=== PATIENT | female | born 1990 | race Caucasian/White ===

== ENCOUNTER 2018-10-30 08:44 | Inpatient (IN) | payer MEDICARE, OTHER ==
[2018-10-30 08:49] VITALS: BMI 21.4
[2018-10-30] MEDS ORDERED: methylPREDNISolone NA SUCC 125 MG/2 ML VIAL IVPUSH ONE (08:59)
--- NOTE | 2018-10-30 08:59 | PDOC ---
History of Present Illness - General Chief Complaint: Shortness of Breath Stated Complaint: SOB Time Seen by Provider: 10/30/18 08:59 History Source: Patient Exam Limitations: No Limitations - History of Present Illness Initial Comments: 10/30/18 09:32 Pt presents to the ED complaining of wheezing and shortness of breath consistent with, but worse than, her typical asthma attack. History of asthma without intubations or recent hospital admissions. States that she "felt like she was gettting sick yesterday", but that she felt well until she became acutely short of breath today. Tried her inhaler without relief. Patient is a smoker. 10/30/18 09:37 Past History - Past Medical History Allergies/Adverse Reactions: Allergies Allergy/AdvReac Type Severity Reaction Status Date / Time No Known Allergies Allergy Verified 01/20/16 15:07 Home Medications: Ambulatory Orders Amox-Tr/K Cl [Augmentin 875Mg Tablet] 1 tab PO BID #20 tablet 01/20/16 Asthma: Yes - Suicide/Smoking/Psychosocial Hx Smoking History: Never smoked Have you smoked in the past 12 months: No Number of Cigarettes Smoked Daily: 10 Information on smoking cessation initiated: No 'Breaking Loose' booklet given: 05/07/13 Hx Alcohol Use: No Drug/Substance Use Hx: No Substance Use Type: None Review of Systems - Review of Systems Able to Perform ROS?: Yes Is the patient limited [place] Citizen proficient: No Constitutional: No: Chills, Diaphoresis, Fever, Loss of Appetite, Malaise, Night Sweats, Weakness, Weight Stable, Unintentional Wgt. Loss, Unexplained wgt Loss, Other HEENTM: No: Eye Pain, Blurred Vision, Tearing, Recent change in vision, Double Vision, Cataracts, Ear Pain, Ocular Prothesis, Ear Discharge, Nose Pain, Nose Congestion, Tinnitus, Nose Bleeding, Hearing Loss, Throat Pain, Throat Swelling , Mouth Pain, Dental Problems, Difficulty Swallowing, Mouth Swelling, Other Respiratory: Yes: Shortness of Breath, SOB with Exertion, SOB at Rest, Wheezing Cardiac (ROS): Yes: Chest Tightness ABD/GI: No: Abdominal Distended, Abd. Pain w/ defecation, Blood Streaked Bowels , Constipated, Diarrhea, Difficulty Swallowing, Nausea, Poor Appetite, Poor Fluid Intake, Rectal Bleeding, Vomiting, Indigestion, Abdominal cramping, Tarry Stools, Other Musculoskeletal: No: Back Pain, Gout, Joint Pain, Joint Swelling, Muscle Pain, Muscle Weakness, Neck Pain, Joint Stiffness, Other All Other Systems: Reviewed and Negative *Physical Exam - Vital Signs Last Vital Signs Temp Pulse Resp BP Pulse Ox 82 20 115/68 97 10/30/18 08:45 10/30/18 08:45 10/30/18 08:45 10/30/18 08:45 - Physical Exam Comments: 10/30/18 09:39 Gen: alert, mild respiratory distress HEENT: normocephalic, atraumatic CV: rrr, slightly tachycardic Lungs: + diffuse wheezing b/l. good air entry. Speaking in 4-5 word sentences. + accessory muscle use Abdomen: soft, non tender, non distended Ext: no edema or tenderness Neuro: alert and oriented x 3 ED Treatment Course - LABORATORY CBC & Chemistry Diagram: 10/30/18 10:52 10/30/18 10:52 Medical Decision Making - Medical Decision Making 10/30/18 11:25 pt presents to the ED complaining of wheezing and shortness of breath consistent with, but worse than prior asthma exacerbations. Treated with mag, solumedrol and multiple nebs with some improvement. However, patient is still unable to ambulate without becoming severely short of breath. Will admit to medicine for observation and continued asthma treatments. *DC/Admit/Observation/Transfer Diagnosis at time of Disposition: Asthma Qualifiers: Asthma severity: moderate Asthma persistence: persistent Asthma complication type: with acute exacerbation Qualified Code(s): J45.41 - Moderate persistent asthma with (acute) exacerbation - Discharge Dispostion Condition at time of disposition: Good Decision to Admit order: Yes - Referrals - Patient Instructions - Post Discharge Activity
[2018-10-30] MEDS: ALBUTEROL SO4 2.5/IPRATROPIUM 0.5 INH SOL 3 ML VIAL.NEB. NEB SCH ×5 (09:09→19:09)
[2018-10-30] MEDS ORDERED: ALBUTEROL SO4 2.5/IPRATROPIUM 0.5 INH SOL 3 ML VIAL.NEB. NEB ONE (09:10)
[2018-10-30] MEDS ORDERED: methylPREDNISolone NA SUCC 125 MG/2 ML VIAL ONE (09:10)
[2018-10-30] MEDS ORDERED: MAGNESIUM SULF 50% (8.12 MEQ/2 ML-1 GM VIAL) IVPB ONE (09:32)
[2018-10-30] MEDS ORDERED: MAGNESIUM 1GM/D5W - 2 GM/200 ML IVPB IVPB ONE (09:32)
[2018-10-30] MEDS ORDERED: ALBUTEROL SO4 0.083% IH SOL 2.5 MG/3 ML VIAL.NEB. NEB ONE ×3 (09:59→13:08)
[2018-10-30] MEDS ORDERED: ALBUTEROL SO4 0.5 % INH SOLN 2.5 MG/0.5 ML VIAL.NEB. NEB ONE ×3 (10:21→13:04)
[2018-10-30 11:14] LABS: BASO % 0.2 % (0-2.0); EOS % 1.3 % (0-4.5); HEMATOCRIT 41.4 % (32.4-45.2); HEMOGLOBIN 14.1 GM/dl (10.7-15.3); LYMPH % 10.9 % (8-40); MCH 32.3 pg (25.7-33.7); MCHC 34.1 g/dl (32.0-36.0); MEAN CELL VOLUME 94.8 fl (80-96); MEAN PLT VOLUME 10.1 fl (7.5-11.1); MONO % 4.6 % (3.8-10.2); PLATELET COUNT 207 K/MM3 (134-434); RBC 4.37 M/mm3 (3.60-5.2); RDW 12.3 % (11.6-15.6); WHITE BLOOD COUNT 10.7 K/mm3 (4.0-10.8)
[2018-10-30 11:21] LABS: ALBUMIN 4.5 g/dl (3.4-5.0); BILIRUBIN,TOTAL 0.6 mg/dl (0.2-1); CALCIUM 8.8 mg/dl (8.5-10); CREATININE 0.7 mg/dl (0.55-1.3); POTASSIUM 3.2 mmol/L (3.5-5.1); TOT PROT 7.4 g/dl (6.4-8.2)
--- NOTE | 2018-10-30 13:19 | HP ---
CHIEF COMPLAINT: Wheezing, SOB PCP: None - has not had PCP >9 years; goes to EDs for care HISTORY OF PRESENT ILLNESS: 28 year-old female with a PMH significant for asthma. She presented to the ED today for wheezing and shortness of breath. Patient has no history of overnight hospitalizations, no previous intubations. This is her fourth visit to an ED this year and she has been on steroids twice this year. Patient is allergic to cats but has cats at home. She did not clean their hair for 2 days and thinks this is what triggered this asthma attack. Yesterday she had some clear nasal discharge and a slight sore throat. She denies fever, sweats, chills, nausea, cough. ER course was notable for: (1) RR 22, SpO2 91% room air Recent Travel: No PAST MEDICAL HISTORY: Asthma PAST SURGICAL HISTORY: None reported Social History: unemployed; lives with mother and brothers Smoking: current every day cigarettes; denies vaping Alcohol: occasional Drugs: occasional marijuana Family History: Mother 46 with asthma; father 48 a&w; 4 brothers and 4 half- brothers 2 of whom of asthma Allergies No Known Allergies Allergy (Verified 01/20/16 15:07) HOME MEDICATIONS: Home Medications Medication Instructions Recorded Amox-Tr/K Cl [Augmentin 875Mg 1 tab PO BID #20 tablet 01/20/16 Tablet] REVIEW OF SYSTEMS CONSTITUTIONAL: Absent: fever, chills, diaphoresis, generalized weakness, malaise, loss of appetite, weight change HEENT: Absent: rhinorrhea, nasal congestion, throat pain, throat swelling, difficulty swallowing, mouth swelling, ear pain, eye pain, visual changes CARDIOVASCULAR: Absent: chest pain, syncope, palpitations, irregular heart rate, lightheadedness , peripheral edema RESPIRATORY: +SOB, wheezing, CED[place]O Absent: cough, orthopnea, stridor, hemoptysis GASTROINTESTINAL: Absent: abdominal pain, abdominal distension, nausea, vomiting, diarrhea, constipation, melena, hematochezia GENITOURINARY: Absent: dysuria, frequency, urgency, hesitancy, hematuria, flank pain, genital pain MUSCULOSKELETAL: Absent: myalgia, arthralgia, joint swelling, back pain, neck pain SKIN: Absent: rash, itching, pallor HEMATOLOGIC/IMMUNOLOGIC: Absent: easy bleeding, easy bruising, lymphadenopathy, frequent infections ENDOCRINE: Absent: unexplained weight gain, unexplained weight loss, heat intolerance, cold intolerance NEUROLOGIC: Absent: headache, focal weakness or paresthesias, dizziness, unsteady gait, seizure, mental status changes, bladder or bowel incontinence PSYCHIATRIC: Absent: anxiety, depression, suicidal or homicidal ideation, hallucinations. PHYSICAL EXAMINATION Vital Signs - 24 hr 10/30/18 10/30/18 10/30/18 08:45 10:23 10:53 Pulse Rate 82 Pulse Rate [ 121 H 75 Right] Respiratory 20 22 H 21 H Rate Blood Pressure 115/68 Blood Pressure 125/73 99/62 [Left Arm] O2 Sat by Pulse 97 96 96 Oximetry (%) 10/30/18 10/30/18 10:56 12:04 Pulse Rate Pulse Rate [ 79 Right] Respiratory 20 Rate Blood Pressure Blood Pressure 107/80 [Left Arm] O2 Sat by Pulse 96 93 L Oximetry (%) GENERAL: Awake, alert, and fully oriented, in no acute distress. HEAD: Normal with no signs of trauma. LUNGS: Inspiratory and expiratory wheezing; able to speak in complete sentences ; no accessory muscle use. HEART: Regular rate and rhythm, S1 and S2 ABDOMEN: Soft, nontender, not distended UPPER EXTREMITIES: 2+ pulses, warm, well-perfused. No cyanosis. No clubbing. No peripheral edema. LOWER EXTREMITIES: 2+ pulses, warm, well-perfused. No calf tenderness. No peripheral edema. NEUROLOGICAL: Cranial nerves II-XII intact. Normal speech. Laboratory Results - last 24 hr 10/30/18 10/30/18 10:52 10:52 WBC 10.7 RBC 4.37 Hgb 14.1 Hct 41.4 MCV 94.8 MCH 32.3 MCHC 34.1 RDW 12.3 Plt Count 207 MPV 10.1 Absolute Neuts (auto) 8.9 Neutrophils % 83.0 H Lymphocytes % 10.9 Monocytes % 4.6 Eosinophils % 1.3 Basophils % 0.2 Sodium 139 Potassium 3.2 L Chloride 109 H Carbon Dioxide 21 Anion Gap 9 BUN 9.0 Creatinine 0.7 Est GFR (CKD-EPI)AfAm 137.62 Est GFR (CKD-EPI)NonAf 118.74 Random Glucose 107 H Calcium 8.8 Total Bilirubin 0.6 AST 18 ALT 15 Alkaline Phosphatase 45 Total Protein 7.4 Albumin 4.5 ASSESSMENT/PLAN 28 year-old female with a PMH significant for asthma admitted for asthma exacerbation. Hypoxic respiratory failure secondary to asthma exacerbation --sat 91% in ED on room air --titrate O2 >95% --duonebs QID, albuterol nebs PRN --solumedrol 40mg q6h --pre post in am --pulmonary consult Hypokalemia --replete FEN Fluids: PO intake adequate Electrolytes: replete as indicated Nutrition: regular diet DVT prophylaxis: low risk, oob, ambulation Dispo: continues to require inpatient care. Full code. Visit type - Emergency Visit Emergency Visit: Yes ED Registration Date: 10/30/18 Care time: The patient presented to the Emergency Department on the above date and was hospitalized for further evaluation of their emergent condition. - New Patient This patient is new to me today: Yes Date on this admission: 10/30/18 - Critical Care Critical Care patient: No
[2018-10-30] MEDS ORDERED: ALBUTEROL SO4 0.083% IH SOL 2.5 MG/3 ML VIAL.NEB. NEB PRN ×2 (13:53→23:42)
[2018-10-30] MEDS: methylPREDNISolone NA SUCC 40 MG/1 ML VIAL IVPUSH SCH ×2 (16:08→20:54)
[2018-10-30] MEDS ORDERED: POTASSIUM CHLORIDE TABS 20 MEQ TABLET.ER (FP) PO SCH (16:45)
[2018-10-30 17:04] LABS: MAGNESIUM 1.6 mg/dL (1.8-2.4)
[2018-10-30] MEDS ORDERED: PNEUMOC 13-VAL CONJ-DIP CRM/PF 0.5 ML DISP.SYRIN IM ONE (17:05)
[2018-10-30] MEDS ORDERED: PNEUMOCOCCAL 23 VACCINE 0.5 ML VIAL IM ONE (17:15)
[2018-10-30] MEDS: POTASSIUM CHLORIDE ORAL LIQUID 20 MEQ/15 ML PO SCH (19:08)
--- NOTE | 2018-10-30 21:25 | ED.PROV ---
Physicial Exam I saw and examined the patient. Call to the floor to examine this patient who was admitted earlier for exam asthma exacerbation. Patient over the last couple of hours has begun to have increased difficulty breathing with increased work of breathing and at the time of my evaluation patient was receiving a DuoNeb. Patient had received 1 DuoNeb prior to that in the last 2 hours and had just received some Solu-Medrol. Had diffuse wheezing in all lung graves with expiratory phase greater than inspiratory phase. Patient's O2 sat during the DuoNeb was 93-94%. Patient otherwise was using some accessory muscles with respiration. Patient was not diaphoretic or in any acute distress. Recommended the patient be transferred over to [facility] preferably ICU. Discussed evaluation and exam with Sandhya Rosas the nurse practitioner. - Vital Signs Last Vital Signs Temp Pulse Resp BP Pulse Ox 98.7 F 94 H 17 107/64 95 10/30/18 18:00 10/30/18 18:00 10/30/18 18:00 10/30/18 18:00 10/30/18 18:00
--- NOTE | 2018-10-30 21:30 | RAPID ---
Physical Examination Vital Signs: Vital Signs Temperature 98.7 F 10/30/18 18:00 Pulse Rate 94 H 10/30/18 18:00 Respiratory Rate 17 10/30/18 18:00 Blood Pressure 107/64 10/30/18 18:00 O2 Sat by Pulse Oximetry (%) 95 10/30/18 18:00 Labs: CBC, BMP 10/30/18 10:52 10/30/18 10:52 Rapid Response - Rapid Response Assessment: Summoned to patient's room by nursing staff. Patient seen and examined. RR 40 SpO2 95% on 15L (nebulizer) HR 133 General: found patient sitting on edge of bed in tripod position; agitated CV: S1, S2, tachycardic Lungs: diffuse wheezing + accessory muscle use, unable to speak in complete sentences SKIN: dry, warm Hypoxic respiratory failure Severe asthma exacerbation, worsening --Mg given in ED --second dose IV steroids given --continuous nebs --ACLS transfer to ICU --discussed with Dr. Vera Duffy who came to bedside, see note FULL CODE
--- NOTE | 2018-10-30 23:26 | CONSULT ---
Consultation: CONSULT REQUEST: [facility] patient with acute asthma exacerbation HISTORY OF PRESENT ILLNESS: The patient is a 28 year old female with a PMH of Asthma who was brought to our facility from [place] for treatment of her asthma exacerbation. Patient states she started feeling short of breath yesterday around 4-5 p.m. and used her Albuterol inhaler and Pro Air pumps with little relief. When her symptoms persisted she went to the [facility] ER where she was given multiple treatments and admitted to the hospital. States her symptoms improved but she was still having difficulty breathing. Normally, has 5 attacks weekly sometimes during the day, sometimes at night. Patient has been buying her inhalers off the street since she does not have a primary care doctor. States she is going to establish prima care with Dr. Sparks who treats her family (her younger brother also has asthma). Daily smoker (7-8 cigarettes since age 22) and states her asthma triggers includes her multiple cats. Fiance @ bedside. REVIEW OF SYSTEMS: Positive: shortness of breath, wheezing, cough CONSTITUTIONAL: Absent: fever, chills, diaphoresis, generalized weakness, malaise, loss of appetite, weight change HEENT: Absent: rhinorrhea, nasal congestion, throat pain, throat swelling, difficulty swallowing, mouth swelling, ear pain, eye pain, visual changes CARDIOVASCULAR: Absent: chest pain, syncope, palpitations, irregular heart rate, lightheadedness , peripheral edema RESPIRATORY: Absent: dyspnea with exertion, orthopnea, hemoptysis GASTROINTESTINAL: Absent: abdominal pain, abdominal distension, nausea, vomiting, diarrhea, constipation, melena, hematochezia GENITOURINARY: Absent: dysuria, frequency, urgency, hesitancy, hematuria, flank pain, genital pain MUSCULOSKELETAL: Absent: myalgia, arthralgia, joint swelling, back pain, neck pain SKIN: Absent: rash, itching, pallor HEMATOLOGIC/IMMUNOLOGIC: Absent: easy bleeding, easy bruising, lymphadenopathy, frequent infections ENDOCRINE: Absent: unexplained weight gain, unexplained weight loss, heat intolerance, cold intolerance NEUROLOGIC: Absent: headache, focal weakness or paresthesias, dizziness, unsteady gait, seizure, mental status changes, bladder or bowel incontinence PSYCHIATRIC: Absent: anxiety, depression, suicidal or homicidal ideation, hallucinations. PHYSICAL EXAMINATION General: awake, alert, receiving Duo Neb treatment Respiratory: Scattered diffuse wheezing w/good air entry B/L, speaking in full sentences, no accessory muscle use, no tripoding CV: S1, S2, RRR, Tachycardic Abdomen: soft, non-tender Extremity: 2+ DP pulses B/L, no edema Neuro: A&O x3, CN II-XI intact Vital Signs - 24 hr 10/30/18 10/30/18 10/30/18 08:45 10:23 10:53 Temperature 98.3 F Pulse Rate 82 Pulse Rate [ 121 H 75 Right] Respiratory 20 22 H 21 H Rate Blood Pressure 115/68 Blood Pressure 125/73 99/62 [Left Arm] O2 Sat by Pulse 97 96 96 Oximetry (%) 10/30/18 10/30/18 10/30/18 10:56 12:04 13:53 Temperature Pulse Rate Pulse Rate [ 79 Right] Respiratory 20 Rate Blood Pressure Blood Pressure 107/80 [Left Arm] O2 Sat by Pulse 96 93 L 91 L Oximetry (%) 10/30/18 10/30/18 10/30/18 14:00 16:42 16:50 Temperature 98.3 F 98.4 F Pulse Rate 84 Pulse Rate [ 87 Right] Respiratory 20 22 H Rate Blood Pressure 112/62 Blood Pressure 111/61 [Left Arm] O2 Sat by Pulse 93 L 96 Oximetry (%) 10/30/18 18:00 Temperature 98.7 F Pulse Rate 94 H Pulse Rate [ Right] Respiratory 17 Rate Blood Pressure 107/64 Blood Pressure [Left Arm] O2 Sat by Pulse 95 Oximetry (%) Laboratory Results - last 24 hr 10/30/18 10/30/18 10:52 10:52 WBC 10.7 RBC 4.37 Hgb 14.1 Hct 41.4 MCV 94.8 MCH 32.3 MCHC 34.1 RDW 12.3 Plt Count 207 MPV 10.1 Absolute Neuts (auto) 8.9 Neutrophils % 83.0 H Lymphocytes % 10.9 Monocytes % 4.6 Eosinophils % 1.3 Basophils % 0.2 Sodium 139 Potassium 3.2 L Chloride 109 H Carbon Dioxide 21 Anion Gap 9 BUN 9.0 Creatinine 0.7 Est GFR (CKD-EPI)AfAm 137.62 Est GFR (CKD-EPI)NonAf 118.74 Random Glucose 107 H Calcium 8.8 Magnesium 1.6 L Total Bilirubin 0.6 AST 18 ALT 15 Alkaline Phosphatase 45 Total Protein 7.4 Albumin 4.5 Active Medications Generic Name Dose Route Start Last Admin Trade Name Freq PRN Reason Stop Dose Admin Albuterol Sulfate 1 amp 10/30/18 13:53 10/30/18 20:55 Ventolin 0.083% Nebulizer Soln - NEB 1 amp Q4H PRN Administration SHORT OF BREATH/WHEEZING Albuterol/Ipratropium 1 amp 10/30/18 16:00 10/30/18 19:09 Duoneb - NEB 1 amp RQID JESSIKA Administration Methylprednisolone Sodium Succinate 40 mg 10/30/18 15:00 10/30/18 20:54 Solu-Medrol - IVPUSH 40 mg Q6H-IV JESSIKA Administration Potassium Chloride 40 meq 10/30/18 18:45 10/30/18 19:08 Potassium Chloride Oral Liquid PO 10/31/18 00:46 40 meq Q6H JESSIKA Administration ASSESSMENT/PLAN: 28 y/o female with acute asthma exacerbation. Reported to be tripoding with accessory muscle use at [place]. Upon presentation to our ED patient protecting airway, speaking full sentences, HDS. PULMONARY # Exacerbation of Severe Persistent Asthma - s/p Mg, Solumedrol @ [place] - Not in RD @ presentation to our ICU - Continue Duo Nebs Q2H PRN + Beta Agonist Q2H PRN - Close monitoring for respiratory compromise F/E/N Regular Diet DVT Prophylaxis: Heparin SQ FULL CODE DISPOSITION: Pending patient's continued clinical improvement likely discharge home tomorrow. Visit type - Emergency Visit Emergency Visit: Yes ED Registration Date: 10/30/18 Care time: The patient presented to the Emergency Department on the above date and was hospitalized for further evaluation of their emergent condition. - New Patient This patient is new to me today: Yes Date on this admission: 10/31/18 - Critical Care Critical Care patient: No ATTENDING PHYSICIAN STATEMENT I saw and evaluated the patient. I reviewed the resident's note and discussed the case with the resident. I agree with the resident's findings and plan as documented. SUBJECTIVE: OBJECTIVE: ASSESSMENT AND PLAN:
[2018-10-30] MEDS ORDERED: ALBUTEROL SO4 2.5/IPRATROPIUM 0.5 INH SOL 3 ML VIAL.NEB. NEB PRN (23:35)
[2018-10-31] MEDS: POTASSIUM CHLORIDE ORAL LIQUID 20 MEQ/15 ML PO SCH (02:15)
[2018-10-31] MEDS: methylPREDNISolone NA SUCC 40 MG/1 ML VIAL IVPUSH SCH ×4 (02:16→21:18)
[2018-10-31 06:51] LABS: HEMOGLOBIN 13.6 GM/dL (10.7-15.3); LYMPH % 4.7 % (8-40)
[2018-10-31 06:53] LABS: BASO % 0.1 % (0-2.0); MCH 32.3 pg (25.7-33.7); MCHC 33.9 g/dl (32.0-36.0); MEAN CELL VOLUME 95.2 fl (80-96); MEAN PLT VOLUME 9.4 fl (7.5-11.1); MONO % 2.3 % (3.8-10.2); NEUT % 92.9 % (42.8-82.8); PLATELET COUNT 206 K/MM3 (134-434); RDW 13.5 % (11.6-15.6); WHITE BLOOD COUNT 11.2 K/mm3 (4.0-10.0)
--- NOTE | 2018-10-31 07:01 | PN ---
Physical Exam: SUBJECTIVE: Patient seen and examined at bedside this morning. She endorses significant improvement of her shortness of breath today. OBJECTIVE: Vital Signs Period Temp Pulse Resp BP Sys/Fraser Pulse Ox Last 24 Hr 98 F-98.7 F 74-121 17-23 99-125/61-80 91-97 GENERAL: The patient is awake, alert, and fully oriented, in no acute distress. Speaking in full sentences. HEAD: Normocephalic, atraumatic EYES: PERRL, extraocular movements intact, sclera anicteric, conjunctiva clear. No ptosis. ENT: Oropharynx clear without exudates, moist mucous membranes. NECK: Supple without lymphadenopathy. Negative stridor LUNGS: Good inspiratory effort, expiratory wheezing bilaterally, worse on right side. Not using accessory muscles of respiration. HEART: Regular rate and rhythm, S1, S2 without murmur, rub or gallop. ABDOMEN: Soft, nontender, nondistended, normoactive bowel sounds, no guarding, no rebound, no hepatosplenomegaly, no masses. EXTREMITIES: 2+ radial, dorsalis pedis pulses bilaterally, warm, well-perfused. No edema. NEUROLOGICAL: Cranial nerves II through XII grossly intact. Normal speech. PSYCH: Normal mood, normal affect. SKIN: Warm, dry. Laboratory Results - last 24 hr 10/30/18 10/30/18 10/31/18 10:52 10:52 05:30 WBC 10.7 11.2 H RBC 4.37 4.20 Hgb 14.1 13.6 Hct 41.4 40.0 MCV 94.8 95.2 MCH 32.3 32.3 MCHC 34.1 33.9 RDW 12.3 13.5 Plt Count 207 206 MPV 10.1 9.4 Absolute Neuts (auto) 8.9 10.4 H Neutrophils % 83.0 H 92.9 H Lymphocytes % 10.9 4.7 L Monocytes % 4.6 2.3 L Eosinophils % 1.3 0.0 Basophils % 0.2 0.1 Nucleated RBC % 0 Sodium 139 Potassium 3.2 L Chloride 109 H Carbon Dioxide 21 Anion Gap 9 BUN 9.0 Creatinine 0.7 Est GFR (CKD-EPI)AfAm 137.62 Est GFR (CKD-EPI)NonAf 118.74 Random Glucose 107 H Calcium 8.8 Magnesium 1.6 L Total Bilirubin 0.6 AST 18 ALT 15 Alkaline Phosphatase 45 Total Protein 7.4 Albumin 4.5 Active Medications Generic Name Dose Route Start Last Admin Trade Name Freq PRN Reason Stop Dose Admin Albuterol Sulfate 1 amp 10/30/18 23:42 10/31/18 06:33 Ventolin 0.083% Nebulizer Soln - NEB 1 amp Q2H PRN Administration SHORT OF BREATH/WHEEZING Albuterol/Ipratropium 1 amp 10/30/18 16:00 10/30/18 19:09 Duoneb - NEB 1 amp RQID JESSIKA Administration Albuterol/Ipratropium 1 amp 10/30/18 23:35 10/31/18 02:35 Duoneb - NEB 1 amp Q2H PRN Administration SHORTNESS OF BREATH Methylprednisolone Sodium Succinate 40 mg 10/30/18 15:00 10/31/18 02:16 Solu-Medrol - IVPUSH 40 mg Q6H-IV JESSIKA Administration ASSESSMENT/PLAN: Patient is 28 year old female with history of asthma (chronic persistent) admitted for acute respiratory failure secondary to asthma exacerbation. Neurologic -Patient is awake, alert, oriented, in no acute distress -Monitor for signs of mental status changes. Cardiac -EKG reveals incomplete right bundle branch block. Negative ischemic changes. -No prior for comparison. Repeat ECG, will need to obtain prior records. -Cardiac monitoring while in ICU Pulmonary Asthma (exacerbation) -Continue Albuterol- ipratropium nebulizer Q4H -Albuterol inhaler Q4H PRN -Singulair 10mg PO HS -Advair 1 puff BID -Methyl prednisone 40mg IV Q8 hours -Maintain oxygen saturation greater than 90% -Counselled regarding importance of smoking cessation. Gastrointestinal -Patient tolerating regular diet without abdominal pain, nausea, vomiting -Prophylaxis not indicated FEN -No IV fluids indicated -Follow CMP, replete as necessary -Regular diet Prophylaxis -Early ambulation Disposition -Patient stable for transfer to medical- surgical floor. Visit type - Emergency Visit Emergency Visit: Yes ED Registration Date: 10/30/18 Care time: The patient presented to the Emergency Department on the above date and was hospitalized for further evaluation of their emergent condition. - New Patient This patient is new to me today: Yes Date on this admission: 10/31/18 - Critical Care Critical Care patient: Yes Total Critical Care Time (in minutes): 35 Critical Care Statement: The care of this patient involved high complexity decision making to prevent further life threatening deterioration of the patient 's condition and/or to evaluate & treat vital organ system(s) failure or risk of failure. - Discharge Referral Referred to [facility] No ATTENDING PHYSICIAN STATEMENT I saw and evaluated the patient. I reviewed the resident's note and discussed the case with the resident. I agree with the resident's findings and plan as documented. SUBJECTIVE: OBJECTIVE: ASSESSMENT AND PLAN:
[2018-10-31] MEDS ORDERED: ALBUTEROL SO4 0.083% IH SOL 2.5 MG/3 ML VIAL.NEB. NEB PRN (07:03)
[2018-10-31] MEDS ORDERED: ALBUTEROL SO4 2.5/IPRATROPIUM 0.5 INH SOL 3 ML VIAL.NEB. NEB PRN (07:03)
[2018-10-31 07:59] LABS: CREATININE 0.7 mg/dL (0.55-1.3)
[2018-10-31 08:00] LABS: ALBUMIN 4.2 g/dl (3.4-5.0); CALCIUM 9.2 mg/dL (8.5-10.1); MAGNESIUM 2.3 mg/dL (1.8-2.4); POTASSIUM 5.5 mmol/L (3.5-5.1); TOT PROT 7.6 g/dl (6.4-8.2)
[2018-10-31 08:01] LABS: BILIRUBIN,TOTAL 0.4 mg/dL (0.2-1)
--- NOTE | 2018-10-31 08:19 | PN ---
Progress Note, Physician Chief Complaint: wheezing, sob History of Present Illness: 28 year-old female with a PMH significant for asthma. She presented to the ED today for wheezing and shortness of breath. Patient has no history of overnight hospitalizations, no previous intubations. This is her fourth visit to an ED this year and she has been on steroids twice this year. Patient is allergic to cats but has cats at home. She did not clean their hair for 2 days and thinks this is what triggered this asthma attack. She had some clear nasal discharge and a slight sore throat. She denies fever, sweats, chills, nausea, cough. Patient was transferred from [facility] to [facility] for ICU managment - Current Medication List Current Medications: Active Medications Albuterol Sulfate (Ventolin 0.083% Nebulizer Soln -) 1 amp NEB Q4H PRN PRN Reason: SHORT OF BREATH/WHEEZING Albuterol/Ipratropium (Duoneb -) 1 amp NEB RQID JESSIKA Last Admin: 10/30/18 19:09 Dose: 1 amp Methylprednisolone Sodium Succinate (Solu-Medrol -) 40 mg IVPUSH Q6H-IV JESSIKA Last Admin: 10/31/18 02:16 Dose: 40 mg - Objective Vital Signs: Vital Signs Temperature 98 F 10/31/18 04:00 Pulse Rate 87 10/31/18 04:00 Respiratory Rate 23 H 10/31/18 04:00 Blood Pressure 118/69 10/31/18 04:00 O2 Sat by Pulse Oximetry (%) 97 10/31/18 00:55 Constitutional: Yes: Well Nourished, Anxious, Mild Distress Eyes: Yes: WNL, Conjunctiva Clear, EOM Intact HENT: Yes: WNL, Atraumatic, Normocephalic Neck: Yes: WNL, Supple, Trachea Midline Cardiovascular: Yes: WNL, Regular Rate and Rhythm Respiratory: Yes: WNL, On Nasal O2, Poor Air Entry, Rhonchi, Wheezes (scattered) Gastrointestinal: Yes: WNL, Normal Bowel Sounds, Soft ...Rectal Exam: Yes: Deferred Genitourinary: Yes: WNL Breast(s): Yes: WNL Musculoskeletal: Yes: WNL Extremities: Yes: WNL Edema: No Peripheral Pulses WNL: Yes Integumentary: Yes: WNL Neurological: Yes: WNL, Alert, Oriented ...Motor Strength: WNL Psychiatric: Yes: Other (Patient very upset abour hospitalization) Labs: CBC, BMP 10/31/18 05:30 10/31/18 05:30 - ....Imaging Chest X-ray: Image Reviewed (no effusion /infiltartes) Problem List - Problems (1) Prophylactic measure Assessment/Plan: FEN regular diet no IVF needed monitor electrolytes DVT encourage ambulation Dispo transfer to tele full code discharge planning provided patient with medical letter for employer-wanted to sign out AMA in fear of loosing her job. Agreed to stay when note was provided Code(s): Z29.9 - ENCOUNTER FOR PROPHYLACTIC MEASURES, UNSPECIFIED (2) RBBB Assessment/Plan: EKG reveals incomplete right bundle branch block. Negative ischemic changes. no prioe EKG for comparison, no PCP will repeat in am if persists will consider further cardiac testing, ie TTE, however pt is uninsured Code(s): I45.10 - UNSPECIFIED RIGHT BUNDLE-BRANCH BLOCK (3) Uninsured Assessment/Plan: spoke to SW industrial/organizational psychologist Irwin and will have for floor see her friday and have financial dept see pt Code(s): Z59.8 - OTHER PROBLEMS RELATED TO HOUSING AND ECONOMIC CIRCUMSTANCES (4) Asthma exacerbation Assessment/Plan: Continue duonebs Q4 hours -Albuterol inhaler Q4H PRN when discharged home -Singulair 10mg PO HS -Advair BID -Methyl prednisone 40mg IV Q8 hours -Maintain oxygen saturation greater than 90% Code(s): J45.901 - UNSPECIFIED ASTHMA WITH (ACUTE) EXACERBATION Visit type - Emergency Visit Emergency Visit: Yes ED Registration Date: 10/30/18 Care time: The patient presented to the Emergency Department on the above date and was hospitalized for further evaluation of their emergent condition. - New Patient This patient is new to me today: Yes Date on this admission: 10/31/18 - Critical Care Critical Care patient: Yes Total Critical Care Time (in minutes): 35 Critical Care Statement: The care of this patient involved high complexity decision making to prevent further life threatening deterioration of the patient 's condition and/or to evaluate & treat vital organ system(s) failure or risk of failure. - Discharge Referral Referred to [facility] No
[2018-10-31] MEDS: ALBUTEROL SO4 2.5/IPRATROPIUM 0.5 INH SOL 3 ML VIAL.NEB. NEB SCH ×4 (08:30→20:41)
--- NOTE | 2018-10-31 10:05 | PN ---
Teaching Attending Note Name of Resident: Zachary Coronado ATTENDING PHYSICIAN STATEMENT I saw and evaluated the patient. I reviewed the resident's note and discussed the case with the resident. I agree with the resident's findings and plan as documented. SUBJECTIVE: Patient seen and examined in the ICU. Awake and alert. Breathing feels better today. No CP. Intake & Output 10/28/18 10/29/18 10/30/18 10/31/18 23:59 23:59 23:59 23:59 Intake Total 400 100 Balance 400 100 Weight 110 lb Last Vital Signs Temp Pulse Resp BP Pulse Ox 98 F 86 20 101/78 95 10/31/18 04:00 10/31/18 07:10 10/31/18 07:10 10/31/18 07:10 10/31/18 09:00 Active Medications Albuterol Sulfate (Ventolin 0.083% Nebulizer Soln -) 1 amp NEB Q4H PRN PRN Reason: SHORT OF BREATH/WHEEZING Albuterol/Ipratropium (Duoneb -) 1 amp NEB RQID JESSIKA Last Admin: 10/31/18 08:30 Dose: 1 amp Methylprednisolone Sodium Succinate (Solu-Medrol -) 40 mg IVPUSH Q6H-IV JESSIKA Last Admin: 10/31/18 09:27 Dose: 40 mg Montelukast Sodium (Singulair -) 10 mg PO HS JESSIKA Fluticasone/Salmeterol (Advair 100mcg/50mcg -) 1 puff IH BID JESSIKA PHYSICAL EXAMINATION General: awake, alert, NAD Respiratory: Mild expiratory wheezing on the right CV: S1, S2, RRR Abdomen: soft, non-tender Extremity: 2+ DP pulses B/L, no edema Neuro: non-focal Laboratory Results - last 24 hr 10/30/18 10/30/18 10/31/18 10:52 10:52 05:30 WBC 10.7 11.2 H RBC 4.37 4.20 Hgb 14.1 13.6 Hct 41.4 40.0 MCV 94.8 95.2 MCH 32.3 32.3 MCHC 34.1 33.9 RDW 12.3 13.5 Plt Count 207 206 MPV 10.1 9.4 Absolute Neuts (auto) 8.9 10.4 H Neutrophils % 83.0 H 92.9 H Lymphocytes % 10.9 4.7 L Monocytes % 4.6 2.3 L Eosinophils % 1.3 0.0 Basophils % 0.2 0.1 Nucleated RBC % 0 Sodium 139 Potassium 3.2 L Chloride 109 H Carbon Dioxide 21 Anion Gap 9 BUN 9.0 Creatinine 0.7 Est GFR (CKD-EPI)AfAm 137.62 Est GFR (CKD-EPI)NonAf 118.74 Random Glucose 107 H Calcium 8.8 Magnesium 1.6 L Total Bilirubin 0.6 AST 18 ALT 15 Alkaline Phosphatase 45 Total Protein 7.4 Albumin 4.5 Serum , Qual 10/31/18 10/31/18 05:30 05:30 WBC RBC Hgb Hct MCV MCH MCHC RDW Plt Count MPV Absolute Neuts (auto) Neutrophils % Lymphocytes % Monocytes % Eosinophils % Basophils % Nucleated RBC % Sodium 141 Potassium 5.5 H Chloride 113 H Carbon Dioxide 23 Anion Gap 6 L BUN 11.0 Creatinine 0.7 Est GFR (CKD-EPI)AfAm 137.62 Est GFR (CKD-EPI)NonAf 118.74 Random Glucose 145 H Calcium 9.2 Magnesium 2.3 Total Bilirubin 0.4 AST 14 L ALT 19 Alkaline Phosphatase 54 Total Protein 7.6 Albumin 4.2 Serum , Qual Negative ASSESSMENT/PLAN: Resolving AE of Asthma Suspect component of environmental allergy Singulair O2 as needed BD TX standing and PRN Monitor off ABX Check IgE level after discharge No smoking advised Check daily AM PEF Outpatient PFTs Advised avoidance of triggers Munira Starr
[2018-10-31] MEDS: FLUTICASONE/SALMETEROL 100 MCG/50 MCG DISKUS IH SCH ×2 (10:25→22:39)
[2018-10-31 12:50] LABS: ANISOCYTOSIS 2+; MACROCYTOSIS 0; OVALOCYTE 1+; PLATELET ESTIMATE NORMAL; TEAR DROP CELLS 1+
[2018-10-31 15:58] LABS: COCAINE, UR NEGATIVE ng/ml (CUTOFF=300); METHADONE, UR NEGATIVE ng/ml (CUTOFF=300); OPIATES, URI NEGATIVE ng/ml (CUTOFF=300); PHENCYCLIDINE,URINE NEGATIVE ng/ml (CUTOFF=25); URINE AMPHETAMINES NEGATIVE ng/ml (CUTOFF=500); URINE BARBITURATES NEGATIVE ng/ml (CUTOFF=200); URINE BENZODIAZEPINES NEGATIVE ng/ml (CUTOFF=200)
[2018-10-31 17:56] LABS: CALCIUM 9.3 mg/dL (8.5-10.1); CREATININE 0.8 mg/dL (0.55-1.3); POTASSIUM 4.5 mmol/L (3.5-5.1)
[2018-10-31] MEDS ORDERED: MONTELUKAST NA 10 MG TABLET PO SCH ×2 (22:00)
[2018-11-01] MEDS: methylPREDNISolone NA SUCC 40 MG/1 ML VIAL IVPUSH SCH ×2 (03:17→09:26)
[2018-11-01] MEDS: ALBUTEROL SO4 2.5/IPRATROPIUM 0.5 INH SOL 3 ML VIAL.NEB. NEB SCH ×2 (08:22→12:04)
[2018-11-01] MEDS ORDERED: ACETAMINOPHEN 325 MG TABLET (FP) PO PRN (09:50)
--- NOTE | 2018-11-01 11:05 | DS ---
Physical Exam: SUBJECTIVE: Patient seen and examined she was admitted to hospital for acute asthma and she was started on iv steroids and she is much improved. she has multiple cats in her home and she may have allergy to the cats and advised her to see financial developer. she is much improved not OBJECTIVE: Vital Signs Period Temp Pulse Resp BP Sys/Fraser Pulse Ox Last 24 Hr 97.7 F-98.4 F 57-93 20-20 98-122/60-78 93-94 PHYSICAL EXAM GENERAL: The patient is awake, alert, and fully oriented, in no acute distress. HEAD: Normal with no signs of trauma. EYES: PERRL, extraocular movements intact, sclera anicteric, conjunctiva clear. ENT: Ears normal, nares patent, oropharynx clear without exudates, moist mucous membranes. NECK: Trachea midline, full range of motion, supple. LUNGS: scattered ronchi HEART: Regular rate and rhythm, S1, S2 without murmur, rub or gallop. ABDOMEN: Soft, nontender, nondistended, normoactive bowel sounds, no guarding, no rebound, no hepatosplenomegaly, no masses. EXTREMITIES: 2+ pulses, warm, well-perfused, no edema. NEUROLOGICAL: Cranial nerves II through XII grossly intact. Normal speech, gait not observed. PSYCH: Normal mood, normal affect. SKIN: Warm, dry, normal turgor, no rashes or lesions noted. LABS Laboratory Results - last 24 hr 10/31/18 10/31/18 10/31/18 05:30 14:57 17:24 Neutrophils % (Manual) 85.5 H Band Neutrophils % 3.0 Lymphocytes % (Manual) 7.5 L Monocytes % (Manual) 4 Eosinophils % (Manual) 0.0 Basophils % (Manual) 0.0 Myelocytes % (Man) 0 Promyelocytes % (Man) 0 Blast Cells % (Manual) 0 Metamyelocytes 0 Hypochromia 0 Platelet Estimate Normal Platelet Comment Present Polychromasia 1+ Poikilocytosis 1+ Anisocytosis 2+ Microcytosis 1+ Macrocytosis 0 Spherocytes 1+ Tear Drop Cells 1+ Ovalocytes 1+ [place] Cells 1+ Sodium 140 Potassium 4.5 Chloride 110 H Carbon Dioxide 23 Anion Gap 7 L BUN 16.0 Creatinine 0.8 Est GFR (CKD-EPI)AfAm 117.10 Est GFR (CKD-EPI)NonAf 101.04 Random Glucose 135 H Calcium 9.3 Opiates Screen Negative Methadone Screen Negative Barbiturate Screen Negative Phencyclidine Screen Negative Ur Amphetamines Screen Negative MDMA (Ecstasy) Screen Negative Benzodiazepines Screen Negative Cocaine Screen Negative U Marijuana (THC) Screen Positive A* HOSPITAL COURSE: she was given steroids and nebulizers is improved and advised her to f/u with pmd or [facility] and experimental box tester Date of Admission:10/30/18 Date of Discharge: 11/01/18 Minutes to complete discharge: 30 Discharge Summary Reason For Visit: ASTHMA Current Active Problems Asthma (Acute) Asthma exacerbation (Acute) Prophylactic measure (Acute) RBBB (Acute) Uninsured (Acute) - Instructions Diet, Activity, Other Instructions: she can assume full activity advised her to f/u with her primary care physician or f/u in [facility] and she will f/u with experimental box tester dr starr Referrals: Dimitry Starr MD [Staff Physician] - Disposition: HOME - Home Medications Comprehensive Discharge Medication List: Ambulatory Orders Proair Hfa 180 mcg IH Q4H PRN MDD 12 inhalations 10/30/18 Albuterol Sulfate [Albuterol Sulfate Hfa] 18 gm IH QID #1 hfa.aer.ad 11/01/18 Fluticasone/Salmeterol [Advair 250-50 Diskus] 1 each IH BID #1 blst.w.dev Methylprednisolone [Medrol Dose Nelson] 4 mg PO ASDIR #21 tablet 11/01/18 Montelukast Sodium [Singulair] 10 mg PO DAILY #30 tablet 11/01/18 This patient is new to me today: Yes Date on this admission: 11/01/18 Emergency Visit: Yes ED Registration Date: 10/30/18 Care time: The patient presented to the Emergency Department on the above date and was hospitalized for further evaluation of their emergent condition. Critical Care patient: No - Discharge Referral Referred to [facility] Yes Physician Referral: Giovanni Serna MD ([facility])
--- NOTE | 2018-11-01 11:29 | EKG ---
Test Reason : Blood Pressure : / mmHG Vent. Rate : 072 BPM Atrial Rate : 072 BPM P-R Int : 114 ms QRS Dur : 100 ms QT Int : 398 ms P-R-T Axes : 067 054 053 degrees QTc Int : 435 ms NORMAL SINUS RHYTHM T WAVE ABNORMALITY, CONSIDER ANTERIOR ISCHEMIA ABNORMAL ECG WHEN COMPARED WITH ECG OF 30-OCT-2018 11:07, NO SIGNIFICANT CHANGE WAS FOUND Confirmed by IVIS ABARCA MD ([id number]) on 11/01/2018 11:29:43 AM Also confirmed by IVIS ABARCA MD ([id number]) on 11/01/2018 11:52:08 AM Referred By: Prosper PIPER Confirmed By:IVIS ABARCA MD
--- NOTE | 2018-11-01 11:42 | EKG ---
Test Reason : Blood Pressure : / mmHG Vent. Rate : 087 BPM Atrial Rate : 087 BPM P-R Int : 128 ms QRS Dur : 112 ms QT Int : 392 ms P-R-T Axes : 086 056 046 degrees QTc Int : 471 ms SINUS RHYTHM WITH MARKED SINUS ARRHYTHMIA INCOMPLETE RIGHT BUNDLE BRANCH BLOCK BORDERLINE ECG NO PREVIOUS ECGS AVAILABLE Confirmed by IVIS ABARCA MD ([id number]) on 11/01/2018 11:41:46 AM Referred By: Confirmed By:IVIS ABARCA MD
[2018-11-01 14:54] VITALS: BP 118/64; PULSE 82; TEMP 97.8
== END 2018-11-01 15:03 | disposition home or self-care (01) | DRG 141 ==
LOC: FER 08:44 → FM/S 13:18 → JICU 10-31 00:12 → J6S 10-31 18:58
PROVIDERS: ADMIT Internal Medicine; ATTEND Internal Medicine
DX: J45.51 Severe persistent asthma with (acute) exacerbation (principal); J96.91 Respiratory failure, unspecified with hypoxia; E87.6 Hypokalemia; I45.19 Other right bundle-branch block; F12.90 Cannabis use, unspecified, uncomplicated; R00.0 Tachycardia, unspecified; R06.02 Shortness of breath; Z72.89 Other problems related to lifestyle; Z72.0 Tobacco use; Z59.8 Other problems related to housing and economic circumstances
CPT/HCPCS: 36415; 71045-TC-FY; 80048; 80053; 80307; 81025; 83735; 84703; 85025; 90732; 93005; 93010; 94640; 99283-25; G0009

== ENCOUNTER 2019-10-01 08:52 | Emergency (ER) | payer OTHER ==
[2019-10-01] MEDS ORDERED: ALBUTEROL SO4 2.5/IPRATROPIUM 0.5 INH SOL 3 ML VIAL.NEB. NEB ONE (09:05)
[2019-10-01 09:09] VITALS: BP 108/62; PULSE 54; TEMP 97.9; BMI 22.2
[2019-10-01] MEDS ORDERED: MAGNESIUM SULF 50% (8.12 MEQ/2 ML-1 GM VIAL) IVPB ONE (09:09)
[2019-10-01] MEDS ORDERED: methylPREDNISolone NA SUCC 125 MG/2 ML VIAL IVPUSH ONE (09:09)
[2019-10-01] MEDS ORDERED: MAGNESIUM 1GM/D5W - 1 GM/100 ML IVPB IVPB ONE (09:15)
--- NOTE | 2019-10-01 09:22 | PDOC ---
History of Present Illness - General Chief Complaint: Asthma Stated Complaint: ASTHMA Time Seen by Provider: 10/01/19 08:59 - History of Present Illness Initial Comments: Brittany Finn is a 29 y/o female with PMH significant for asthma and heart failure(?) presenting today with shortness of breath. Ran out of asthma inhaler 4 days ago. Worsening SOB over the past 4 days. No fever. No cough. Reports mild wheezes. No chest pain. No abdominal pain. No back pain. Reports that she has had prior intubations before for asthma. On chart review unable to identify information re: intubations and heart failure diagnosis. SocHx: smokes 4 cigarettes a day Past History - Medical History Allergies/Adverse Reactions: Allergies Allergy/AdvReac Type Severity Reaction Status Date / Time animal dander Allergy Severe Difficulty Verified 10/30/18 16:23 Breathing dextromethorphan Allergy Severe Swelling Verified 10/30/18 16:17 [From NyQuil] doxylamine [From NyQuil] Allergy Severe Swelling Verified 10/30/18 16:17 pollen extracts Allergy Severe Difficulty Verified 10/30/18 16:23 Breathing pseudoephedrine [From NyQuil] Allergy Severe Swelling Verified 10/30/18 16:17 Home Medications: Ambulatory Orders Proair Hfa 180 mcg IH Q4H PRN MDD 12 inhalations 10/30/18 Albuterol Sulfate [Albuterol Sulfate Hfa] 18 gm IH QID #1 hfa.aer.ad 11/01/18 Fluticasone/Salmeterol [Advair 250-50 Diskus] 1 each IH BID #1 blst.w.dev 11/01/18 Methylprednisolone [Medrol Dose Nelson] 4 mg PO ASDIR #21 tablet 11/01/18 Montelukast Sodium [Singulair] 10 mg PO DAILY #30 tablet 11/01/18 Anemia: No Asthma: Yes (severe) Cancer: No Cardiac Disorders: No CVA: No COPD: No CHF: Yes Dementia: No Diabetes: No GI Disorders: No Disorders: No HTN: No Hypercholesterolemia: No Liver Disease: No Seizures: No Thyroid Disease: No Other medical history: ANXIETY - Surgical History Abdominal Surgery: No Appendectomy: No Cardiac Surgery: No Cholecystectomy: No Lung Surgery: No Neurologic Surgery: No Orthopedic Surgery: Yes (left ACL tear repair) - Immunization History Immunization Up to Date: No - Psycho-Social/Smoking History Smoking History: Current every day smoker Have you smoked in the past 12 months: Yes Number of Cigarettes Smoked Daily: 8 Information on smoking cessation initiated: No 'Breaking Loose' booklet given: 05/07/13 - Substance Abuse Hx (Audit-C & DAST Scrn) How often the patient has a drink containing alcohol: Never Score: In Men: 4 or > Positive; In Women: 3 or > Positive: 0 Screen Result (Pos requires Nsg. Audit-10AR): Negative In the last yr the pt used illegal drug/Rx for NonMed reason: No Score: Yes response is considered Positive: 0 Screen Result (Positive result requires Nsg. DAST-10): Negative Review of Systems - Review of Systems Comments:: GENERAL/CONSTITUTIONAL: No fever or chills. No weakness._ HEAD, EYES, EARS, NOSE AND THROAT: No change in vision. No change in hearing. No sore throat._ CARDIOVASCULAR: No chest pain. Reports shortness of breath. RESPIRATORY: Denies cough, hemoptysis_ GASTROINTESTINAL: No nausea, vomiting, diarrhea or constipation._ GENITOURINARY: No dysuria, frequency, or change in urination._ MUSCULOSKELETAL: No joint or muscle swelling or pain. No neck or back pain._ SKIN: No rash_ NEUROLOGIC: No headache, vertigo, loss of consciousness, or change in strength/sensation._ ENDOCRINE: No increased thirst. No abnormal weight change_ HEMATOLOGIC/LYMPHATIC: No anemia, easy bleeding. ALLERGIC/IMMUNOLOGIC: No hives or skin allergy._ *Physical Exam - Vital Signs Last Vital Signs Temp Pulse Resp BP Pulse Ox 97.9 F 54 L 20 108/62 98 10/01/19 09:04 10/01/19 09:04 10/01/19 09:04 10/01/19 09:04 10/01/19 09:04 - Physical Exam GENERAL: Awake, alert, and oriented to person/place/time HEAD: No signs of trauma, normocephalic, atraumatic _ EYES: PERRLA, EOMI, sclera anicteric, conjunctiva clear_ ENT: Hearing grossly normal, nares patent, oropharynx clear without exudates. No uvular deviation. Moist mucosa_ NECK: Normal ROM, supple, no lymphadenopathy, JVD, or masses_ LUNGS: Mild respiratory distress, decreased air movements bilaterally, mild wheezes. HEART: Regular rate and rhythm, normal S1 and S2, no murmurs appreciated, peripheral pulses normal and equal bilaterally._ ABDOMEN: Soft, nontender, normoactive bowel sounds. No guarding, no rebound. No masses_ EXTREMITIES: Normal inspection, Normal range of motion, no edema. No clubbing or cyanosis_ NEUROLOGICAL: Cranial nerves II through XII grossly intact. Normal speech, normal gait, no focal sensorimotor deficits _ SKIN: Warm, Dry, normal turgor, no rashes or lesions noted_ ED Treatment Course - LABORATORY CBC & Chemistry Diagram: 10/01/19 09:15 10/01/19 09:15 - RADIOLOGY Radiology Studies Ordered: Category Date Time Status CHEST X-RAY PORTABLE* [RAD] Stat Radiology 10/01/19 09:14 Ordered Medical Decision Making - Medical Decision Making 10/01/19 09:21 29F hx of asthma and heart failure presenting today with shortness of breath. Reports that this started 4 days ago when she ran out of her albuterol inhaler. Prior intubations for asthma. Decreased air movements. Sats 95% on RA. -duonebs -labs -ekg -cxr -solumedrol -magnesium 10/01/19 10:04 CXR negative for acute chest pathology. 10/01/19 10:09 EKG shows sinus bradycardia, 57 bpm, no ST elevation, QTc 439, no axis deviation, T wave inversions in aVR and V1 seen on prior EKG Oct 2018. 10/01/19 10:30 Labs reviewed. Laboratory Last Values WBC 7.0 K/mm3 (4.0-10.0) 10/01/19 09:15 RBC 4.83 M/mm3 (3.60-5.2) 10/01/19 09:15 Hgb 15.5 GM/dL (10.7-15.3) H 10/01/19 09:15 Hct 45.5 % (32.4-45.2) H 10/01/19 09:15 MCV 94.2 fl (80-96) 10/01/19 09:15 MCH 32.0 pg (25.7-33.7) 10/01/19 09:15 MCHC 34.0 g/dl (32.0-36.0) 10/01/19 09:15 RDW 12.5 % (11.6-15.6) 10/01/19 09:15 Plt Count 223 K/MM3 (134-434) 10/01/19 09:15 MPV 9.5 fl (7.5-11.1) 10/01/19 09:15 Absolute Neuts (auto) 3.2 K/mm3 (1.5-8.0) 10/01/19 09:15 Neutrophils % 44.9 % (42.8-82.8) D 10/01/19 09:15 Lymphocytes % 45.4 % (8-40) H D 10/01/19 09:15 Monocytes % 6.2 % (3.8-10.2) D 10/01/19 09:15 Eosinophils % 2.8 % (0-4.5) D 10/01/19 09:15 Basophils % 0.7 % (0-2.0) D 10/01/19 09:15 Nucleated RBC % 0 % (0-0) 10/01/19 09:15 Sodium 142 mmol/L (136-145) 10/01/19 09:15 Potassium 4.8 mmol/L (3.5-5.1) 10/01/19 09:15 Chloride 110 mmol/L (98-107) H 10/01/19 09:15 Carbon Dioxide 23 mmol/L (21-32) 10/01/19 09:15 Anion Gap 9 MMOL/L (8-16) 10/01/19 09:15 BUN 15.0 mg/dL (7-18) 10/01/19 09:15 Creatinine 0.8 mg/dL (0.55-1.3) 10/01/19 09:15 Est GFR (CKD-EPI)AfAm 116.28 10/01/19 09:15 Est GFR (CKD-EPI)NonAf 100.33 10/01/19 09:15 Random Glucose 92 mg/dL (74-106) 10/01/19 09:15 Calcium 9.3 mg/dL (8.5-10.1) 10/01/19 09:15 Total Bilirubin 0.5 mg/dL (0.2-1) 10/01/19 09:15 AST 36 U/L (15-37) 10/01/19 09:15 ALT 22 U/L (13-61) 10/01/19 09:15 Alkaline Phosphatase 54 U/L (45-117) 10/01/19 09:15 Creatine Kinase 254 U/L (26-192) H 10/01/19 09:15 Troponin I < 0.02 ng/ml (0.00-0.05) 10/01/19 09:15 Total Protein 7.6 g/dl (6.4-8.2) 10/01/19 09:15 Albumin 4.1 g/dl (3.4-5.0) 10/01/19 09:15 Serum , Qual Negative 10/01/19 09:15 Pt reassessed. Reports significant improvement. Plan to d/c home with PCP f/u and albuterol. Mild wheezes on exam much improved from initial presentation. No accessory muscle use or increased work of breathing. Discharge - Discharge Information Problems reviewed: Yes Clinical Impression/Diagnosis: Acute asthma exacerbation Qualifiers: Asthma severity: mild Asthma persistence: intermittent Qualified Code(s): J45.21 - Mild intermittent asthma with (acute) exacerbation Condition: Stable Disposition: HOME - Admission No - Follow up/Referral Referrals: Travis Smith MD [Primary Care Provider] - - Patient Discharge Instructions - Post Discharge Activity
[2019-10-01] MEDS ORDERED: methylPREDNISolone NA SUCC 125 MG/2 ML VIAL ONE (09:30)
[2019-10-01 09:44] LABS: BASO % 0.7 % (0-2.0); EOS % 2.8 % (0-4.5); HEMATOCRIT 45.5 % (32.4-45.2); HEMOGLOBIN 15.5 GM/dL (10.7-15.3); LYMPH % 45.4 % (8-40); MEAN CELL VOLUME 94.2 fl (80-96); MEAN PLT VOLUME 9.5 fl (7.5-11.1); MONO % 6.2 % (3.8-10.2); NEUT % 44.9 % (42.8-82.8); PLATELET COUNT 223 K/MM3 (134-434); RBC 4.83 M/mm3 (3.60-5.2); RDW 12.5 % (11.6-15.6)
[2019-10-01 10:12] LABS: ALBUMIN 4.1 g/dl (3.4-5.0); ALK PHOS 54 U/L (45-117); ANION GAP 9 MMOL/L (8-16); BILIRUBIN,TOTAL 0.5 mg/dL (0.2-1); CALCIUM 9.3 mg/dL (8.5-10.1); CHLORIDE 110 mmol/L (98-107); CO2 23 mmol/L (21-32); CREATININE 0.8 mg/dL (0.55-1.3); GLUCOSE,RANDOM 92 mg/dL (74-106); POTASSIUM 4.8 mmol/L (3.5-5.1); SGOT/AST 36 U/L (15-37); SGPT/ALT 22 U/L (13-61); SODIUM 142 mmol/L (136-145); TOT PROT 7.6 g/dl (6.4-8.2)
--- NOTE | 2019-10-01 10:55 | PDOC ---
Documentation entered by Marium Kauffman SCRIBE, acting as scribe for Clive Haskins MD. Clive Haskins MD: This documentation has been prepared by the Jamari elena Nirvannie, SCRIBE, under my direction and personally reviewed by me in its entirety. I confirm that the documentation accurately reflects all work, treatment, procedures, and medical decision making performed by me. Attending Attestation - Resident Resident Name: YuPerfecto - ED Attending Attestation I have performed the following: I have examined & evaluated the patient, The case was reviewed & discussed with the resident, I agree w/resident's findings & plan, Exceptions are as noted - HPI HPI: 10/01/19 10:39 CC: Carson The patient is a 29 year old female with a significant past medical history asthma (frequent exacerbation; on steroids once/month; last time on steroids 1.5 months ago, no prior intubations), asthma, and unknown heart failure (noncompliant with medications) who presents to the ED with shortness of breath. As per patient, she ran out of her rescue inhaler and has only been using her daily inhaler (blue). Patient describes her symptoms as previous exacerbations. She denies any pulmonology follow up. She has been unable to follow up with PCP because she was without medical insurance until recently. She denies any focal asthma trigger for today's episode, "states everything." - Physicial Exam PE: 10/01/19 10:39 Exam: Vitals: Triage Vital signs reviewed General Appearance: no acute distress, well nourished well developed, Head: Atraumatic, normocephalic Chest Wall: Nontender Cardiac: Regular rate and rhythm, no murmurs, no rubs, no gallops, Lungs: +Wheezing bilaterally. Skin: Warm and dry, no rashes or lesions, no petechiae Neuro: AOX3; Psych: normal mood, normal affect - Medical Decision Making 10/01/19 10:54 21 years old chronic asthma presents to the ED with asthma exacerbation. Received medications here in the emergency department and now feels much better Patient received IV medication including steroid and magnesium and now feels comfortable returning home. We will discharge on a daily and her old corticosteroid as well as a refill of her rescue inhaler as well as a short course of oral prednisone We have also arranged for the patient to follow-up in our clinic Findings, the need for follow-up and strict return instructions cussed with patient. Discharge - Discharge Information Problems reviewed: Yes Clinical Impression/Diagnosis: Acute asthma exacerbation Qualifiers: Asthma severity: mild Asthma persistence: intermittent Qualified Code(s): J45.21 - Mild intermittent asthma with (acute) exacerbation Condition: Stable Disposition: HOME - Additional Discharge Information Prescriptions: Fluticasone/Salmeterol [Advair 250-50 Diskus] 1 each IH BID #1 blst.w.dev predniSONE [Deltasone -] 40 mg PO DAILY 5 Days #5 tablet Albuterol Sulfate Inhaler - [Ventolin HFA Inhaler -] 2 puff IH Q4H PRN #1 inhaler PRN Reason: Asthma - Follow up/Referral Referrals: [facility] [place] [Provider Group] Travis Smith MD [Primary Care Provider] - - Patient Discharge Instructions Patient Printed Discharge Instructions: Asthma -- Adult, DI for Asthma -- Adult Additional Instructions: Please follow up with a primary care physician at the [facility] on October 09 at 1pm (see referral). Please take Advair 1 puff morning and evening (twice a day) for your asthma. Please take your Ventolin (albuterol inhaler) as needed as a rescue inhaler. You are also getting a steroid pill. Please take prednisone 40 mg for 5 days. If you experience any new, worsening, or concerning symptoms, including worsening shortness of breath, chest pain, dizziness, or any other concerns, please return to the emergency department. - Post Discharge Activity
--- NOTE | 2019-10-02 15:08 | EKG ---
Test Reason : Blood Pressure : / mmHG Vent. Rate : 057 BPM Atrial Rate : 057 BPM P-R Int : 130 ms QRS Dur : 096 ms QT Int : 452 ms P-R-T Axes : 065 050 039 degrees QTc Int : 439 ms SINUS BRADYCARDIA WITH SINUS ARRHYTHMIA POSSIBLE LEFT ATRIAL ENLARGEMENT ABNORMAL ECG WHEN COMPARED WITH ECG OF 01-NOV-2018 10:17, NO SIGNIFICANT CHANGE WAS FOUND Confirmed by BHASKAR LOERA MD ([id number]) on 10/02/2019 3:07:44 PM Referred By: Confirmed By:BHASKAR LOERA MD
== END 2019-10-01 11:03 | disposition home or self-care (01) ==
LOC: JER 08:52
PROC: 3E033GC Introduction of Other Therapeutic Substance into Peripheral Vein, Percutaneous Approach (ICD-10-PCS; principal; 2019-10-01)
DX: J45.21 Mild intermittent asthma with (acute) exacerbation (principal)
CPT/HCPCS: 36415; 71045-TC-FY; 80053; 82550; 82553; 84484; 84703; 85025; 93005; 93010; 99285-25

== ENCOUNTER 2019-10-08 14:30 | Observation (INO) | payer OTHER ==
[2019-10-08 14:43] VITALS: BMI 22.2
--- NOTE | 2019-10-08 14:50 | PDOC ---
History of Present Illness - General Chief Complaint: Chest Pain Stated Complaint: CHEST PAIN/ANXIETY Time Seen by Provider: 10/08/19 14:49 History Source: Patient Exam Limitations: No Limitations - History of Present Illness Initial Comments: 10/08/19 15:07 HPI: 29 y/o F with PMH asthma, anxiety, and ?heart failure BIBEMS for chest pain. Patient reports normally "working through the pain" which she says she experience every day from when she wakes up to when she falls asleep. Pain is described as "a brick sitting on my chest" and does not radiate, has not changed over time, and does not have associated symptoms. She endorses anxiety and asthma, reporting she was moving boxes at work when she noticed stars in her vision, became anxious and required albuterol for wheezing / breathing difficulty. Continued working and felt the chest pressure with associated tunnel vision, numbness in her hands and feet. Decided she was going to go home but friend called 911. Not on control, current daily smoker, denies drug use. Poor follow up, cardiology appointment on Friday for her reported heart failure, not diagnosed at [facility] per our records. Past History - Travel History Traveled outside of the country in the last 30 days: No Close contact w/someone who was outside of country & ill: No - Medical History Allergies/Adverse Reactions: Allergies Allergy/AdvReac Type Severity Reaction Status Date / Time animal dander Allergy Severe Difficulty Verified 10/08/19 14:40 Breathing dextromethorphan Allergy Severe Swelling Verified 10/08/19 14:40 [From NyQuil] doxylamine [From NyQuil] Allergy Severe Swelling Verified 10/08/19 14:40 pollen extracts Allergy Severe Difficulty Verified 10/08/19 14:40 Breathing pseudoephedrine [From NyQuil] Allergy Severe Swelling Verified 10/08/19 14:40 Home Medications: Ambulatory Orders Proair Hfa 180 mcg IH Q4H PRN MDD 12 inhalations 10/30/18 Albuterol Sulfate [Albuterol Sulfate Hfa] 18 gm IH QID #1 hfa.aer.ad 11/01/18 Fluticasone/Salmeterol [Advair 250-50 Diskus] 1 each IH BID #1 blst.w.dev 11/01/18 Methylprednisolone [Medrol Dose Nelson] 4 mg PO ASDIR #21 tablet 11/01/18 Montelukast Sodium [Singulair] 10 mg PO DAILY #30 tablet 11/01/18 Albuterol Sulfate Inhaler - [Ventolin HFA Inhaler -] 2 puff IH Q4H PRN #1 inhaler 10/01/19 Fluticasone/Salmeterol [Advair 250-50 Diskus] 1 each IH BID #1 blst.w.dev 10/01/19 predniSONE [Deltasone -] 40 mg PO DAILY 5 Days #5 tablet 10/01/19 Anemia: No Asthma: Yes Cancer: No Cardiac Disorders: Yes (CHF) CVA: No COPD: No CHF: No Dementia: No Diabetes: No GI Disorders: No Disorders: No HTN: No Hypercholesterolemia: No Liver Disease: No Psychiatric Problems: Yes (ANXIETY) Seizures: No Thyroid Disease: No - Surgical History Abdominal Surgery: No Appendectomy: No Cardiac Surgery: No Cholecystectomy: No Lung Surgery: No Neurologic Surgery: No Orthopedic Surgery: Yes (left ACL tear repair) - Immunization History Immunization Up to Date: No - Psycho-Social/Smoking History Smoking History: Never smoked Have you smoked in the past 12 months: Yes Number of Cigarettes Smoked Daily: 8 'Breaking Loose' booklet given: 05/07/13 - Substance Abuse Hx (Audit-C & DAST Scrn) How often the patient has a drink containing alcohol: Never Score: In Men: 4 or > Positive; In Women: 3 or > Positive: 0 Screen Result (Pos requires Nsg. Audit-10AR): Negative In the last yr the pt used illegal drug/Rx for NonMed reason: No Score: Yes response is considered Positive: 0 Screen Result (Positive result requires Nsg. DAST-10): Negative Review of Systems - Review of Systems Able to Perform ROS?: Yes Is the patient limited Persian proficient: Yes Constitutional: No: Chills, Fever HEENTM: Yes: Recent change in vision (stars, fading to black). No: Nose Congestion Respiratory: Yes: See HPI, Shortness of Breath, Wheezing. No: Cough Cardiac (ROS): Yes: Chest Pain (heaviness). No: Irregular Heart Rate, Lightheadedness, Palpitations, Syncope, Chest Tightness ABD/GI: No: Constipated, Diarrhea, Nausea, Vomiting : No: Burning, Dysuria, Frequency Musculoskeletal: No: Muscle Pain, Muscle Weakness Integumentary: No: Bruising, Pruritus, Rash Neurological: Yes: Numbness (Hands and feet). No: Headache, Tingling, Weakness, Ataxia Psychiatric: No: Stressors, Change in Appetite Endocrine: No: Increased Thirst, Increased Urine Hematologic/Lymphatic: No: Anemia, Blood Clots, Easy Bleeding All Other Systems: Reviewed and Negative *Physical Exam - Vital Signs Last Vital Signs Temp Pulse Resp BP Pulse Ox 98.2 F 65 20 100/61 100 10/08/19 14:40 10/08/19 14:40 10/08/19 14:40 10/08/19 14:40 10/08/19 14:40 - Physical Exam 10/08/19 15:31 Vitals reviewed, AFVSS GEN: Well appearing, appears stated age, NAD, comfortable. AAOx3. HEENT: NCAT, EOMI, PERRL. Sclera anicteric, non-injected. No facial asymmetry. Moist mucous membranes. Normal voice. Trachea midline. CV: RRR, S1/S2, no murmurs / rubs / gallops appreciated. LUNG: CTABL, normal work of breathing. No wheezes, rales, rhonchi. No cough. Speaking full sentences. GI: Soft, NTND, +BS, no guarding, no rebound. No masses. EXTREMITIES: 2+ distal pulses. No clubbing / cyanosis / edema. No gross deformity in any extremity. SKIN: Warm, dry, no rashes appreciated, non-jaundiced. PSYCH: Normal mood and affect. Cooperative and appropriate. NEURO: CN grossly intact. Moving all extremities well. Normal strength and sensation grossly. Heart Score/ECG Review - History History: Slightly suspicious - Electrocardiogram EKG: Non specific repolarization disturbance - Age Age: </= 45 - Risk Factors Risk Factors Heart Score: Yes Smoking History Based on the list above the patient has:: 1-2 risk factors - Troponin Troponin: </= normal limit - Score Heart Score - Total: 2 ED Treatment Course - LABORATORY CBC & Chemistry Diagram: 10/08/19 14:57 10/08/19 14:57 Medical Decision Making - Medical Decision Making 10/08/19 15:34 29 y/o F with PMH asthma, anxiety, and ?heart failure BIBEMS for chest pain. History notable for multiple prior episodes of this pain, feeling much better in the ED. Exam notable for stable vitals, clear lungs, normal exam. DDX: r/o ACS, asthma exacerbation, dehydration, orthostatic hypotension, vasovagal, arrhythmia, electrolyte aberration. Concerning for apparent pre-syncope this morning. Patient PERCs out for pulmonary embolism which was also considered. HEART Score 2. - CBC, CMP, Cardiac profile - EKG, CXR - 1L NS EKbpm, NSR, normal axis, normal intervals (QTc 441), T wave inversions V1- V4 and partial RBBB morphology consistent with EKG 09/30, concerning for Brugada- esque morphologies in V1, V2. 10/08/19 16:27 Labs unremarkable CXR with hyperinflation, no acute pathology Spoke with cardiology, agree with observation admission for changing EKG, chest pain in patient with young heart failure. Laboratory Tests 10/08/19 10/08/19 10/08/19 14:57 14:57 14:57 WBC 12.6 H RBC 4.39 Hgb 13.9 Hct 41.3 MCV 94.2 MCH 31.8 MCHC 33.7 RDW 12.7 Plt Count 232 MPV 9.3 Absolute Neuts (auto) 8.6 H Neutrophils % 68.1 D Lymphocytes % 25.2 D Monocytes % 5.2 Eosinophils % 1.0 Basophils % 0.5 Nucleated RBC % 0 Sodium 141 Potassium 3.8 Chloride 110 H Carbon Dioxide 20 L Anion Gap 10 BUN 8.7 Creatinine 0.6 Est GFR (CKD-EPI)AfAm 143.77 Est GFR (CKD-EPI)NonAf 124.04 Random Glucose 85 Calcium 8.8 Total Bilirubin 0.9 AST 14 L ALT 18 Alkaline Phosphatase 50 Creatine Kinase 150 Creatine Kinase Index No Result Required. CK-MB (CK-2) < 1.0 Troponin I < 0.02 B-Natriuretic Peptide 37.9 Total Protein 7.0 Albumin 4.0 Serum , Qual Negative Dispo: Tele Obs Discharge - Discharge Information Problems reviewed: Yes Clinical Impression/Diagnosis: Chest pain, rule out acute myocardial infarction Chest pain Qualifiers: Chest pain type: unspecified Qualified Code(s): R07.9 - Chest pain, unspecified Condition: Stable Disposition: HOME - Admission No - Follow up/Referral Referrals: Toni Peck [Primary Care Provider] - - Patient Discharge Instructions Patient Printed Discharge Instructions: DI for Atypical Chest Pain - Post Discharge Activity
[2019-10-08] MEDS ORDERED: SODIUM CHLORIDE 0.9% 500 ML INFUS.BAG IV ONE (15:11)
[2019-10-08 15:24] LABS: BASO % 0.5 % (0-2.0); HEMATOCRIT 41.3 % (32.4-45.2); HEMOGLOBIN 13.9 GM/dL (10.7-15.3); LYMPH % 25.2 % (8-40); MCH 31.8 pg (25.7-33.7); MCHC 33.7 g/dl (32.0-36.0); MEAN CELL VOLUME 94.2 fl (80-96); MEAN PLT VOLUME 9.3 fl (7.5-11.1); MONO % 5.2 % (3.8-10.2); NEUT % 68.1 % (42.8-82.8); PLATELET COUNT 232 K/MM3 (134-434); RBC 4.39 M/mm3 (3.60-5.2); RDW 12.7 % (11.6-15.6); WHITE BLOOD COUNT 12.6 K/mm3 (4.0-10.0)
[2019-10-08] MEDS ORDERED: ACETAMINOPHEN 500 MG TABLET (FP) PO ONE (15:55)
[2019-10-08] MEDS ORDERED: ACETAMINOPHEN INJECTION 100 ML IVPB ONE (16:11)
[2019-10-08 16:19] LABS: ALK PHOS 50 U/L (45-117); ANION GAP 10 MMOL/L (8-16); BILIRUBIN,TOTAL 0.9 mg/dL (0.2-1); BLOOD UREA NITROGEN 8.7 mg/dL (7-18); CALCIUM 8.8 mg/dL (8.5-10.1); CHLORIDE 110 mmol/L (98-107); CO2 20 mmol/L (21-32); CREATININE 0.6 mg/dL (0.55-1.3); GLUCOSE,RANDOM 85 mg/dL (74-106); N-TERMINAL BNP 37.9 pg/ml (5-125); POTASSIUM 3.8 mmol/L (3.5-5.1); SGOT/AST 14 U/L (15-37); SGPT/ALT 18 U/L (13-61); SODIUM 141 mmol/L (136-145)
--- NOTE | 2019-10-08 16:55 | PDOC ---
Documentation entered by Marium Kauffman SCRIBE, acting as scribe for Clive Haskins MD. Clive Haskins MD: This documentation has been prepared by the Jamari elena Nirvannie, SCRIBE, under my direction and personally reviewed by me in its entirety. I confirm that the documentation accurately reflects all work, treatment, procedures, and medical decision making performed by me. Attending Attestation - Resident Resident Name: TerrellJohn - ED Attending Attestation I have performed the following: I have examined & evaluated the patient, The case was reviewed & discussed with the resident, I agree w/resident's findings & plan, Exceptions are as noted - HPI HPI: 10/08/19 15:14 The patient is a 29 year old female with a significant past medical history asthma (frequent exacerbation; on steroids once/month; last exacerbation/outpt sterioids 09/30; no prior intubations), asthma, and unknown heart failure (noncompliant with medications) who presents to the ED with chest pain and increased anxiety. - Physicial Exam PE: 10/08/19 16:54 Vitals: Triage Vital signs reviewed General Appearance: No acute distress, well nourished well developed, Cardiac: Regular rate and rhythym, no murmurs, no rubs, no gallops, Lungs: Clear to auscultation bilateral, good air movement bilaterally, Abdomen: Soft, non distended, normal bowel sounds, non tender to palpation Psych: Normal mood, normal affect - Medical Decision Making 10/08/19 16:54 EKG demonstrates right bundle branch block with biphasic T waves concerning for Brugada given presyncopal type symptoms will admit to medicine on telemetry for cardiology consultation and further management Low risk for ACS given troponin and lack of risk factors The patient is presenting with chest discomfort and presyncope. I am concerned that this may be related to EKG findings concerning for Brugada. The patient has verbalized understanding of my concerns. The patient is clinically sober and appears free from distracting injury. The patient appears to have intact insight, judgment, and reason. In my opinion, this patient has the capacity to make decisions The risks of leaving against medical advice without further evaluation treatment were discussed with the patient. These risks include sudden cardiac arrest , permanant disability. The patient indicated understanding of these risks and appeared to have the capacity to make this decision. The patient is unwilling to stay for a cardiology consultation telemetry monitoring and further management. Patient is unwilling to remain for additional monitoring. He is refus-ing further care and leaving against medical advice I'm unable to convince the patient to stay. I have asked the patient to return as soon as possible to complete her evaluation. I spent greater than 20 minutes at the bedside with the patient trying to convince her to stay however I was unsuccessful. I have confirmed with patient she has cardiology follow-up on Friday Discharge - Discharge Information Problems reviewed: Yes Clinical Impression/Diagnosis: Chest pain, rule out acute myocardial infarction Chest pain Qualifiers: Chest pain type: unspecified Qualified Code(s): R07.9 - Chest pain, unspecified Condition: Stable Disposition: AGAINST MEDICAL ADVICE - Follow up/Referral - Patient Discharge Instructions - Post Discharge Activity
[2019-10-08] MEDS ORDERED: ACETAMINOPHEN 325 MG TABLET (FP) PO PRN (17:29)
--- NOTE | 2019-10-08 17:29 | PN ---
Teaching Attending Note Name of Resident: Debby Rodriguez ATTENDING PHYSICIAN STATEMENT I saw and evaluated the patient. I reviewed the resident's note and discussed the case with the resident. I agree with the resident's findings and plan as documented. SUBJECTIVE: 29 year old female with history of asthma and frequent exacerbations, to date, unknown history of heart failure, current smoker who presents to the ED complaining of chest pains. Patient reports he has been having pains frequently througout the day. Patient described pain as chest pressure like a "brick" on her chest, nonradiating, not associated with diaphoresis nor shortness of breath. She admits to feeling anxious. Pain recurred while she was at work and carrying boxes. 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 Chest pains - EKG with findings at V1 and V2 concerning for brugada; repeat in am - aspirin - troponins serially - cont cardiac monitoring - to consider echo, cardiology consultation 2. current smoker - counseled 3. DVT prophylaxis DW Dr Kavya Riley
[2019-10-08 17:38] VITALS: BP 130/75; PULSE 72; TEMP 98.6
[2019-10-08] MEDS ORDERED: ALBUTEROL SO4 HFA INHALER IH PRN (17:46)
--- NOTE | 2019-10-08 18:00 | HP ---
CHIEF COMPLAINT: chest pain PCP: Dr. Peck HISTORY OF PRESENT ILLNESS: Patient is a 29 y/o F with PMH asthma, anxiety, and ?heart failure BIBEMS for intermittent chest pain for months. Patient is very upset that she has to stay for the night for further evaluation, saying she "wasn't given a choice", and k eeps on raising her voice and cursing in the ED. Patient reports she has this intermittent chest pressure that has been present for months, usually aggravated by work or stress. She denies any chest pain or shortness of breath during interview. Patient refuses to provide any more information as she starts to become very upset again, shouting and cursing, threatening to leave in the morning if she doesn't get seen by the certified ophthalmic medical technician. The rest of history noted from ED staff/chart. As per ED notes, patient reports normally "working through the pain" which she says she experience every day from when she wakes up to when she falls asleep. Pain is described as "a brick sitting on my chest" and does not radiate, has not changed over time, and does not have associated symptoms. She endorses anxiety and asthma, reporting she was moving boxes at work when she noticed stars in her vision, became anxious and required albuterol for wheezing / breathing difficulty. Continued working and felt the chest pressure with associated tunnel vision, numbness in her hands and feet. Decided she was going to go home but friend called 911. At the ED, EKG was done which showed T wave inversions V1-V4 and partial RBBB morphology consistent with EKG 09/30. Cardiology was consulted and recommended admission for observation for changing EKG, chest pain in patient with young heart failure. Recent Travel:denies PAST MEDICAL HISTORY: asthma anxiety PAST SURGICAL HISTORY: Social History: Smoking: smokes cigarettes Alcohol:denies Drugs: denies Allergies animal dander Allergy (Severe, Verified 10/08/19 14:40) Difficulty Breathing dextromethorphan [From NyQuil] Allergy (Severe, Verified 10/08/19 14:40) Swelling facial swelling doxylamine [From NyQuil] Allergy (Severe, Verified 10/08/19 14:40) Swelling facial swelling pollen extracts Allergy (Severe, Verified 10/08/19 14:40) Difficulty Breathing pseudoephedrine [From NyQuil] Allergy (Severe, Verified 10/08/19 14:40) Swelling facial swelling HOME MEDICATIONS: Home Medications Medication Instructions Recorded Proair Hfa 180 mcg IH Q4H PRN MDD 12 10/30/18 inhalations Albuterol Sulfate [Albuterol 18 gm IH QID #1 hfa.aer.ad 11/01/18 Sulfate Hfa] Fluticasone/Salmeterol [Advair 1 each IH BID #1 blst.w.dev 11/01/18 250-50 Diskus] Methylprednisolone [Medrol Dose 4 mg PO ASDIR #21 tablet 11/01/18 Nelson] Montelukast Sodium [Singulair] 10 mg PO DAILY #30 tablet 11/01/18 Albuterol Sulfate Inhaler - 2 puff IH Q4H PRN #1 inhaler 10/01/19 [Ventolin HFA Inhaler -] Fluticasone/Salmeterol [Advair 1 each IH BID #1 blst.w.dev 10/01/19 250-50 Diskus] predniSONE [Deltasone -] 40 mg PO DAILY 5 Days #5 tablet 10/01/19 REVIEW OF SYSTEMS CONSTITUTIONAL: Absent: fever, chills, diaphoresis, generalized weakness, malaise, loss of appetite, weight change HEENT: Absent: rhinorrhea, nasal congestion, throat pain, throat swelling, difficulty swallowing, mouth swelling, ear pain, eye pain, visual changes CARDIOVASCULAR: Absent: chest pain, syncope, palpitations, irregular heart rate, lightheadedness, peripheral edema RESPIRATORY: Absent: cough, shortness of breath, dyspnea with exertion, orthopnea, wheezing, stridor, hemoptysis GASTROINTESTINAL: Absent: abdominal pain, abdominal distension, nausea, vomiting, diarrhea, constipation, melena, hematochezia GENITOURINARY: Absent: dysuria, frequency, urgency, hesitancy, hematuria, flank pain, genital pain MUSCULOSKELETAL: Absent: myalgia, arthralgia, joint swelling, back pain, neck pain SKIN: Absent: rash, itching, pallor HEMATOLOGIC/IMMUNOLOGIC: Absent: easy bleeding, easy bruising, lymphadenopathy, frequent infections ENDOCRINE: Absent: unexplained weight gain, unexplained weight loss, heat intolerance, cold intolerance NEUROLOGIC: Absent: headache, focal weakness or paresthesias, dizziness, unsteady gait, seizure, mental status changes, bladder or bowel incontinence PSYCHIATRIC: Absent: anxiety, depression, suicidal or homicidal ideation, hallucinations. PHYSICAL EXAMINATION Vital Signs - 24 hr 10/08/19 14:40 Temperature 98.2 F Pulse Rate 65 Respiratory 20 Rate Blood Pressure 100/61 O2 Sat by Pulse 100 Oximetry (%) Patient refuses to be examined. Laboratory Results - last 24 hr 10/08/19 10/08/19 10/08/19 14:57 14:57 14:57 WBC 12.6 H RBC 4.39 Hgb 13.9 Hct 41.3 MCV 94.2 MCH 31.8 MCHC 33.7 RDW 12.7 Plt Count 232 MPV 9.3 Absolute Neuts (auto) 8.6 H Neutrophils % 68.1 D Lymphocytes % 25.2 D Monocytes % 5.2 Eosinophils % 1.0 Basophils % 0.5 Nucleated RBC % 0 Sodium 141 Potassium 3.8 Chloride 110 H Carbon Dioxide 20 L Anion Gap 10 BUN 8.7 Creatinine 0.6 Est GFR (CKD-EPI)AfAm 143.77 Est GFR (CKD-EPI)NonAf 124.04 Random Glucose 85 Calcium 8.8 Total Bilirubin 0.9 AST 14 L ALT 18 Alkaline Phosphatase 50 Creatine Kinase 150 Creatine Kinase Index No Result Required. CK-MB (CK-2) < 1.0 Troponin I < 0.02 B-Natriuretic Peptide 37.9 Total Protein 7.0 Albumin 4.0 Serum , Qual Negative ASSESSMENT/PLAN: Patient is a 29 y/o F with PMH asthma, anxiety, and ?heart failure BIBEMS for intermittent chest pain for months. #Chest pain -r/o ACS, ?Brugada syndrome -EKG showed T wave inversions V1-V4 and partial RBBB morphology (similar to previous EKGs in 2019) -bedside US done at the ED was unremarkable -Trop neg x1, will trend and repeat EKG in am -tele monitoring -consider echo -Cardiology (Dr. Kelly) consulted. #Asthma -continue symbicort bid, albuterol ih prn -singulair 10mg daily #FEN -Not on any standing fluids -Electrolytes wnl, routine bmp monitoring -Regular diet #Prophylaxis -Lovenox 40mg sq daily #Disposition -full code -tele obs Visit type - Emergency Visit Emergency Visit: Yes ED Registration Date: 10/08/19 Care time: The patient presented to the Emergency Department on the above date and was hospitalized for further evaluation of their emergent condition. - New Patient This patient is new to me today: No - Critical Care Critical Care patient: No ATTENDING PHYSICIAN STATEMENT I saw and evaluated the patient. I reviewed the resident's note and discussed the case with the resident. I agree with the resident's findings and plan as documented. SUBJECTIVE: OBJECTIVE: ASSESSMENT AND PLAN:
[2019-10-08] MEDS ORDERED: MONTELUKAST NA 10 MG TABLET PO SCH (22:00)
[2019-10-08] MEDS ORDERED: BUDESONIDE/FORMETEROL FUMARATE 80/4.5 mcg INHALER IH SCH (22:00)
[2019-10-09] MEDS ORDERED: ENOXAPARIN NA (PORCINE) 40 MG/0.4 ML DISP.SYRIN SQ SCH (10:00)
--- NOTE | 2019-10-10 17:36 | EKG ---
Test Reason : Blood Pressure : / mmHG Vent. Rate : 059 BPM Atrial Rate : 059 BPM P-R Int : 128 ms QRS Dur : 102 ms QT Int : 446 ms P-R-T Axes : 064 054 048 degrees QTc Int : 441 ms SINUS BRADYCARDIA WITH SINUS ARRHYTHMIA POSSIBLE LEFT ATRIAL ENLARGEMENT T WAVE ABNORMALITY, CONSIDER ANTERIOR ISCHEMIA ABNORMAL ECG WHEN COMPARED WITH ECG OF 01-OCT-2019 09:36, NO SIGNIFICANT CHANGE WAS FOUND Confirmed by MD Martita, Raul ([id number]) on 10/10/2019 5:35:48 PM Referred By: Confirmed By:Raul Anders MD
== END 2019-10-08 18:14 | disposition left against medical advice (07) ==
LOC: JER 14:30 → INTOOBSV 17:13 → JERBED 17:13
PROVIDERS: ADMIT Internal Medicine; ATTEND Internal Medicine
PROC: 3E0337Z Introduction of Electrolytic and Water Balance Substance into Peripheral Vein, Percutaneous Approach (ICD-10-PCS; principal; 2019-10-08)
DX: R07.9 Chest pain, unspecified (principal); J45.909 Unspecified asthma, uncomplicated; F41.9 Anxiety disorder, unspecified; F17.210 Nicotine dependence, cigarettes, uncomplicated
CPT/HCPCS: 36415; 71045-TC-FY; 80053; 82550; 82553; 83880; 84484; 84703; 85025; 93005; 93010; 96360; 99285-25; G0378

== ENCOUNTER 2020-12-21 22:54 | Emergency (ER) | payer OTHER ==
[2020-12-21 23:02] VITALS: BP 112/72; PULSE 88; TEMP 98.1; BMI 25.6
[2020-12-21] MEDS ORDERED: methylPREDNISolone 8 MG TABLET PO ONE (23:40)
[2020-12-21] MEDS ORDERED: ALBUTEROL SO4 2.5/IPRATROPIUM 0.5 INH SOL 3 ML VIAL.NEB. NEB SCH (23:45)
[2020-12-21] MEDS ORDERED: methylPREDNISolone 2 MG TABLET PO ONE (23:45)
== END 2020-12-22 02:35 | disposition home or self-care (01) ==
LOC: JER 22:54
PROC: 3E0F7GC Introduction of Other Therapeutic Substance into Respiratory Tract, Via Natural or Artificial Opening (ICD-10-PCS; principal; 2020-12-21)
DX: J45.901 Unspecified asthma with (acute) exacerbation (principal)
CPT/HCPCS: 71045-TC-FY; 93005; 93010; 99284-25

== ENCOUNTER 2023-02-01 09:12 | Emergency (ER) | payer SELFPAY ==
[2023-02-01 09:35] VITALS: BMI 24.2
[2023-02-01 11:14] LABS: PH,URINE 5.5 (5.0-8.0); URINE APPEARANCE CLEAR; URINE BILIRUBIN NEGATIVE (NEGATIVE); URINE COLOR YELLOW; URINE GLUCOSE (UA) NEGATIVE (NEGATIVE); URINE KETONE NEGATIVE (NEGATIVE); URINE LEUK ESTERASE NEGATIVE (NEGATIVE); URINE NITRITE NEGATIVE (NEGATIVE); URINE PROTEIN NEGATIVE (NEGATIVE); URINE UROBILINOGEN 0.2 mg/dL (0.2-1.0)
[2023-02-01 11:17] LABS: BASO % 0.9 % (0-2.0); EOS % 1.6 % (0-4.5); HCG,QUALITATIVE URINE Negative; HEMATOCRIT 39.6 % (32.4-45.2); HEMOGLOBIN 13.7 GM/dL (10.7-15.3); LYMPH % 39.8 % (8-40); MCH 32.3 pg (25.7-33.7); MCHC 34.5 g/dl (32.0-36.0); MEAN CELL VOLUME 93.5 fl (80-96); MONO % 5.3 % (3.8-10.2); NEUT % 52.4 % (42.8-82.8); PLATELET COUNT 246 10^3/uL (134-434); RBC 4.24 M/mm3 (3.60-5.2); RDW 12.9 % (11.6-15.6); WHITE BLOOD COUNT 7.6 K/mm3 (4.0-10.0)
[2023-02-01 11:29] LABS: POTASSIUM 4.1 mmol/L (3.5-5.1)
[2023-02-01 11:31] LABS: ALBUMIN 3.8 g/dl (3.4-5.0); BLOOD UREA NITROGEN 14.7 mg/dL (7-18); CALCIUM 8.2 mg/dL (8.5-10.1)
[2023-02-01 11:34] LABS: CREATININE 0.9 mg/dL (0.55-1.3)
[2023-02-01 11:36] LABS: BILIRUBIN,TOTAL 0.5 mg/dL (0.2-1); TOT PROT 6.8 g/dl (6.4-8.2)
[2023-02-01 14:45] VITALS: BP 128/87; PULSE 59; RESP 16; TEMP 98
== END 2023-02-01 14:49 | disposition home or self-care (01) ==
LOC: JER 09:12
DX: S70.01XA Contusion of right hip, initial encounter (principal); R10.31 Right lower quadrant pain; R11.0 Nausea; W22.8XXD Striking against or struck by other objects, subsequent encounter; Y93.9 Activity, unspecified; Y92.89 Other specified places as the place of occurrence of the external cause
CPT/HCPCS: 36415; 74177-TC; 80053; 81003; 84703; 85025; 87086; 99285-25; Q9967